=== PATIENT | female | born 1965 | race Caucasian/White ===

== ENCOUNTER 2017-10-21 20:46 | Emergency (ER) | payer OTHER ==
[2017-10-21] MEDS ORDERED: Ketorolac INJ* 30 MG/ML 1 ML VIAL IV PUSH ONE (21:08)
[2017-10-21 21:10] LABS: Urine Appearance Clear; Urine Blood Negative (Negative); Urine Color Straw; Urine Ketones Negative (Negative); Urine Protein Negative (Negative); Urine Specific Gravity 1.005 (1.010-1.030); Urine Urobilinogen Negative (Negative)
[2017-10-21] MEDS ORDERED: Ketorolac INJ* 15 MG/ML 1 ML VIAL IM ONE (21:23)
[2017-10-21 21:29] LABS: ABS Basophils 0 10^3/ul (0-0.2); ABS Eosinophils 0.3 10^3/ul (0-0.6); ABS Lymphocytes 1.7 10^3/ul (1.0-4.8); ABS Monocytes 0.4 10^3/ul (0-0.8); ABS Neutrophils 2.9 10^3/ul (1.5-7.7); ABS Nucleated RBC 0 10^3/ul; Eosinophil % 6.2 % (0-6); Hematocrit 41 % (35-47); Lymphocyte % 31.5 % (25-47); Mean Corpuscular HGB Conc 34 g/dl (31-36); Mean Corpuscular Hemoglobin 33 pg (27-31); Mean Corpuscular Volume 97 fL (80-97); Mean Platelet Volume 9.7 um3 (7.4-10.4); Nucleated Red Blood Cells % 0.1; Platelet Count 204 10^3/ul (150-450); Red Blood Count 4.25 10^6/ul (4.0-5.4); Red Cell Distribution Width 13 % (10.5-15); White Blood Count 5.4 10^3/ul (3.5-10.8)
[2017-10-21 21:46] LABS: EGFR Non-African American 107.9 (>60)
--- NOTE | 2017-10-21 22:01 | RAD ---
Indication: Left flank pain and back pain. CT of the abdomen and pelvis was performed without oral or IV contrast administration. Coronal and sagittal reconstructed images were obtained. The lung bases demonstrate some scarring in the right lung base. Atelectasis is noted in the right middle lobe and right lower lobe. No pleural fluid is identified. The heart demonstrates no pericardial effusion. The liver is normal in size. No focal lesions or intrahepatic ductal dilatation is noted. The gallbladder is partially contracted with calcified gallstone in the dependent portion. No pericholecystic fluid is identified. No wall thickening is noted. The pancreas demonstrates no mass or pancreatic duct dilatation. The spleen is normal in size. No adrenal masses are noted. The kidneys demonstrate no hydronephrosis. Aorta and inferior cava are unremarkable. No retroperitoneal lymphadenopathy is noted. No dilated loops of bowel are noted. CT of the pelvis demonstrates aorta and inferior vena cava to be unremarkable. No retroperitoneal adenopathy is noted. There is diverticulosis of the sigmoid colon with peridiverticular infiltration of fat in the pelvis. Findings are consistent with diverticulitis. No free fluid is noted. No peridiverticular abscess is noted. The uterus is prominent in size and may represent myomatous change. The urinary bladder is otherwise unremarkable. No definite adnexal masses are noted although evaluation is somewhat limited due to lack of oral contrast. No dilated loops of bowel are noted. IMPRESSION: Gallstones without biliary duct dilatation. No evidence of obstructive uropathy is noted. There is infiltration of fat adjacent to the sigmoid colon in the pelvis which may represent diverticulitis. No peridiverticular abscess is noted.
--- NOTE | 2017-10-21 22:21 | ED ---
GI/ HPI - HPI Summary HPI Summary: 52-year-old female presents with left-sided back pain for the past day. She denies any injury. She denies any loss of bowel or bladder. She denies any saddle anesthesia. She states the pain has migratory to the left flank. States occasionally is on around her left side of abdomen. She denies any nausea vomiting. She denies any diarrhea constipation. She denies any pain with urination. She does have a history of UTIs but states that this does not feel similar. She denies any previous abdominal surgeries. She denies any vaginal discharge. She denies any history of kidney stones. She denies any blood in her urine. - History of Current Complaint Chief Complaint: EDFlankPain Time Seen by Provider: 10/21/17 21:00 Stated Complaint: BACK PAIN Pain Intensity: 7 - Allergy/Home Medications Allergies/Adverse Reactions: Allergies Allergy/AdvReac Type Severity Reaction Status Date / Time Sulfa (Sulfonamide Allergy Hives Verified 10/21/17 20:50 Antibiotics) Home Medications: Home Medications ALPRAZolam TAB* [Xanax TAB*] 0.25 mg PO Q6H PRN 10/21/17 [History Confirmed ] Albuterol HFA INHALER* [Ventolin HFA Inhaler*] 1 puff INH Q4H PRN 10/21/17 [ History Confirmed 10/21/17] Fluticasone-Salmeterol 100-50* [Advair Diskus 100-50*] 1 puff INH BID 10/21/17 [ History Confirmed 10/21/17] Ibuprofen TAB* [Advil TAB*] 200 mg PO Q6H PRN 10/21/17 [History Confirmed ] LoraTADine TAB(NF) [Claritin 10 MG TAB(NF)] 10 mg PO EVERY OTHER DAY PRN [History Confirmed 10/21/17] diPHENhydraMINE PO* [Benadryl PO 25 MG TAB*] 25 mg PO EVERY OTHER DAY PRN [History Confirmed 10/21/17] PMH/Surg Hx/FS Hx/Imm Hx Endocrine/Hematology History: Denies: Hx Anticoagulant Therapy Cardiovascular History: Denies: Hx Myocardial Infarction - Cancer History Hx Chemotherapy: No Hx Radiation Therapy: No Infectious Disease History: No Infectious Disease History: Denies: History Other Infectious Disease, Traveled Outside the [place] in Last 30 Days - Family History Known Family History: Negative: Cardiac Disease - Social History Alcohol Use: Daily Substance Use Type: Reports: None Smoking Status (MU): Never Smoked Tobacco Review of Systems Negative: Fever Negative: Chest Pain Negative: Shortness Of Breath Positive: Myalgia - back pain All Other Systems Reviewed And Are Negative: Yes Physical Exam Triage Information Reviewed: Yes Vital Signs On Initial Exam: Initial Vitals Temp Pulse Resp BP Pulse Ox 98.1 F 98 16 123/69 100 10/21/17 20:48 10/21/17 20:48 10/21/17 20:48 10/21/17 20:48 10/21/17 20:48 Vital Signs Reviewed: Yes Appearance: Positive: Well-Appearing Skin: Positive: Warm, Dry Head/Face: Positive: Normal Head/Face Inspection Eyes: Positive: Normal, Conjunctiva Clear Respiratory/Lung Sounds: Positive: Clear to Auscultation, Breath Sounds Present Cardiovascular: Positive: Normal, RRR Abdomen Description: Positive: Nontender, Soft, CVA Tenderness (L). Negative: CVA Tenderness (R) Bowel Sounds: Positive: Present Musculoskeletal: Positive: Strength/ROM Intact - back, Other - tenderness left side of back, no midline tenderness, neg SLR Neurological: Positive: Normal Psychiatric: Positive: Normal Diagnostics - Vital Signs Vital Signs Temp Pulse Resp BP Pulse Ox 10/21/17 20:48 98.1 F 98 16 123/69 100 - Laboratory Lab Results: Lab Results 10/21/17 10/21/17 10/21/17 Range/Units 20:52 21:20 21:20 WBC 5.4 (3.5-10.8) 10^3/ul RBC 4.25 (4.0-5.4) 10^6/ul Hgb 14.0 (12.0-16.0) g/dl Hct 41 (35-47) % MCV 97 (80-97) fL MCH 33 H (27-31) pg MCHC 34 (31-36) g/dl RDW 13 (10.5-15) % Plt Count 204 (150-450) 10^3/ul MPV 9.7 (7.4-10.4) um3 Neut % (Auto) 53.7 (38-83) % Lymph % (Auto) 31.5 (25-47) % Dickenson % (Auto) 7.8 H (0-7) % Eos % (Auto) 6.2 H (0-6) % Baso % (Auto) 0.8 (0-2) % Absolute Neuts (auto) 2.9 (1.5-7.7) 10^3/ul Absolute Lymphs (auto) 1.7 (1.0-4.8) 10^3/ul Absolute Monos (auto) 0.4 (0-0.8) 10^3/ul Absolute Eos (auto) 0.3 (0-0.6) 10^3/ul Absolute Basos (auto) 0 (0-0.2) 10^3/ul Absolute Nucleated RBC 0 10^3/ul Nucleated RBC % 0.1 Sodium 137 L (139-145) mmol/L Potassium 3.8 (3.5-5.0) mmol/L Chloride 104 (101-111) mmol/L Carbon Dioxide 26 (22-32) mmol/L Anion Gap 7 (2-11) mmol/L BUN 10 (6-24) mg/dL Creatinine 0.59 (0.51-0.95) mg/dL Est GFR ( Amer) 138.8 (>60) Est GFR (Non-Af Amer) 107.9 (>60) BUN/Creatinine Ratio 16.9 (8-20) Glucose 107 H (70-100) mg/dL Calcium 9.0 (8.6-10.3) mg/dL Total Bilirubin 0.30 (0.2-1.0) mg/dL AST 20 (13-39) U/L ALT 16 (7-52) U/L Alkaline Phosphatase 67 (34-104) U/L C-React Prot High Sens 1.03 mg/L Total Protein 7.3 (6.4-8.9) g/dL Albumin 4.4 (3.2-5.2) g/dL Globulin 2.9 (2-4) g/dL Albumin/Globulin Ratio 1.5 (1-3) Lipase 30 (11.0-82.0) U/L Beta HCG, Quant < 0.60 mIU/mL Urine Color Straw Urine Appearance Clear Urine pH 6.0 (5-9) Ur Specific [place] 1.005 L (1.010-1.030) Urine Protein Negative (Negative) Urine Ketones Negative (Negative) Urine Blood Negative (Negative) Urine Nitrate Negative (Negative) Urine Bilirubin Negative (Negative) Urine Urobilinogen Negative (Negative) Ur Leukocyte Esterase Negative (Negative) Urine Glucose Negative (Negative) Result Diagrams: 10/21/17 21:20 10/21/17 21:20 Lab Statement: Any lab studies that have been ordered have been reviewed, and results considered in the medical decision making process. - CT abd CT Interpretation: Positive (See Comments) - IMPRESSION: Gallstones without biliary duct dilatation. No evidence of obstructive uropathy is noted. There is infiltration of fat adjacent to the sigmoid colon in the pelvis which may represent diverticulitis. No peridiverticular abscess is noted. CT Interpretation Completed By: Damaris DARLING Course/Dx - Course Course Of Treatment: 52-year-old female presents with left-sided back pain for the past day. She denies any injury. She denies any loss of bowel or bladder. She denies any saddle anesthesia. She states the pain has migratory to the left flank. States occasionally is on around her left side of abdomen. She denies any nausea vomiting. She denies any diarrhea constipation. She denies any pain with urination. She does have a history of UTIs but states that this does not feel similar. She denies any previous abdominal surgeries. She denies any vaginal discharge. She denies any history of kidney stones. She denies any blood in her urine. On exam has tenderness a CVA. Also tender lower back. Negative straight legs. Neurovascularly intact. Nontender abdomen. Labs within normal limits. Urine normal. CT shows gallstones with no signs of acute sinus cholecystitis. Also shows diverticulitis. With pain that was in left lower quadrant will treat as diverticulitis with Cipro and Flagyl. Although with patient's story and heat make it better believe is muscular component though. We'll also treat with Flexeril. Patient understands agrees with plan. - Diagnoses Differential Diagnoses - Female: Diverticulitis, Pyelonephritis, Urinary Tract Infection, Ureteral Calculi Provider Diagnoses: Back pain, Diverticulitis Discharge - Sign-Out/Discharge Documenting (check all that apply): Discharge/Admit/Transfer - Discharge Plan Condition: Good Disposition: HOME Prescriptions: Ciprofloxacin TAB* [Cipro 500 MG TAB*] 500 mg PO BID #14 tab Cyclobenzaprine TAB* [Flexeril 10 MG TAB*] 10 mg PO TID PRN #21 tab PRN Reason: Pain metroNIDAZOLE [Flagyl] 500 mg PO BID #14 tablet Patient Education Materials: Diverticulitis (ED), Back Pain (ED) Referrals: Laz Cantu MD [Primary Care Provider] - Additional Instructions: Take ciprofloxacin twice a day for 7 days Take Flagyl twice a day for 7 days Follow clear liquid diet until symptoms improve than slowly return to normal diet Take muscle relaxers three times a day for pain Use ibuprofen or Tylenol for pain every 6 hours ice/heat area, move as much as possible Follow up with primary within 5 days Return to ED if develop any new or worsening symptoms - Billing Disposition and Condition Condition: GOOD Disposition: HOME
[2017-10-21] MEDS ORDERED: Cyclobenzaprine TAB* 10 MG PO ONE (23:18)
[2017-10-21 23:46] VITALS: BP 106/83
== END 2017-10-21 23:46 | disposition home or self-care (01) ==
LOC: ED 20:46
DX: M54.9 Dorsalgia, unspecified (principal); K57.32 Diverticulitis of large intestine without perforation or abscess without bleeding; Z32.02 Encounter for pregnancy test, result negative; Z87.440 Personal history of urinary (tract) infections; Z88.2 Allergy status to sulfonamides
CPT/HCPCS: 36415; 74176; 80053; 81003; 83690; 84702; 85025; 86141; 96372; 99283; A9270-GY; J1885

== ENCOUNTER 2019-01-18 10:05 | Emergency (ER) | payer OTHER ==
[2019-01-18] MEDS ORDERED: ALPRAZolam TAB* 0.25 MG PO ONE (10:32)
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
[2019-01-18 11:40] VITALS: BP 135/70
== END 2019-01-18 11:40 | disposition home or self-care (01) ==
LOC: ED 10:05
DX: F41.9 Anxiety disorder, unspecified (principal); Z88.1 Allergy status to other antibiotic agents; Z88.2 Allergy status to sulfonamides; Z88.8 Allergy status to other drugs, medicaments and biological substances
CPT/HCPCS: 99282; A9270-GY